=== PATIENT | female | born 1980 | race Two or more races ===

== ENCOUNTER 2018-08-23 11:07 | Outpatient (CLI) | payer OTHER ==
[~2018-08-23] VITALS: Ht 152.4 cm; Wt 63.0 kg
== END 2018-08-23 11:25 | disposition home or self-care (01) ==
LOC: OFIC 805 11:07
DX: R07.0 Pain in throat (principal); R09.81 Nasal congestion; J32.8 Other chronic sinusitis; G50.1 Atypical facial pain